=== PATIENT | male | born 1960 | race Caucasian/White ===

== ENCOUNTER 2017-08-14 13:46 | Inpatient (IN) | payer MEDICAID ==
[2017-08-14] VITALS (9 sets, daily range): BP systolic 80–119
[~2017-08-14] VITALS: Ht 188 cm; Wt 88.5 kg
[2017-08-14] MEDS ORDERED: LIDOCAINE 1%, 20 ML MDV 20 ML ONE (14:09)
[2017-08-14 14:42] LABS: MEAN CORPUSCULAR HEMOGLOBIN 28 pg (27-31); MEAN CORPUSCULAR HGB CONC 32 % (32-36); MEAN CORPUSCULAR VOLUME 88 fL (79.0-98.0); PLATELET COUNT (AUTO) 336 K/uL (130-430); RED CELL DISTRIBUTION WIDTH 20.7 % (9.0-15.0); WHITE BLOOD COUNT (AUTO) 22.9 K/uL (4.8-10.8)
[2017-08-14 14:43] LABS: RED BLOOD CELL COUNT(AUTO) 1.82 MIL/uL (4.2-6.2)
[2017-08-14 14:44] LABS: CALCIUM 8.8 mg/dL (8.4-11.0); CREATININE 1.6 mg/dL (0.55-1.30); HEMOGLOBIN 5.2 g/dL (14.0-18.0); POTASSIUM 4.2 mmol/L (3.5-5.1)
[2017-08-14 14:50] LABS: ALBUMIN 1.9 g/dL (3.4-4.8)
[2017-08-14 15:01] LABS: INR 2.1 (0.80-1.20); PROTHROMBIN TIME 21.6 SECS (9.5-12.5)
[2017-08-14] MEDS ORDERED: SPIR50TA26 PO (15:11)
[2017-08-14] MEDS ORDERED: FERR-57 PO (15:11)
[2017-08-14] MEDS ORDERED: FURO-149 PO (15:11)
[2017-08-14] MEDS ORDERED: DOXA2TAB PO (15:11)
[2017-08-14] MEDS ORDERED: LACT10SO66 PO (15:11)
[2017-08-14] MEDS ORDERED: ASCO500T20 PO (15:11)
[2017-08-14] MEDS ORDERED: MULT PO (15:11)
[2017-08-14] MEDS ORDERED: AMIN887L20 PO (15:11)
[2017-08-14] MEDS: NACL 0.9% 1,000 ML IV SCH ×2 (15:13→20:17)
[2017-08-14 15:14] LABS: BAND % (MANUAL) 2 % (0-6); BASOPHILS % (MANUAL) 0 % (0-2); EOSINOPHILS % (MANUAL) 0 % (0-7); LYMPHOCYTES % (MANUAL) 3 % (20-46); MONOCYTES % (MANUAL) 8 % (0-11)
[2017-08-14] MEDS ORDERED: LACTULOSE 20 GM/30 ML UDC PO ONE (15:15)
[2017-08-14] MEDS ORDERED: VANCOMYCIN HCL 1,000 MG in NS 250 ML IV ONE (15:15)
[2017-08-14] MEDS ORDERED: ACETAMINOPHEN 325 MG TABLET PO PRN (15:15)
[2017-08-14] MEDS ORDERED: ONDANSETRON HCL 4 MG/2 ML VIAL IVP PRN (15:15)
[2017-08-14] MEDS ORDERED: NACL 0.9% 1,000 ML IV ONE ×3 (15:15→17:00)
[2017-08-14] MEDS ORDERED: PIPERACILLIN/TAZO 3.375 GM in NS 50 ML IV ONE ×2 (15:15→15:30)
[2017-08-14] MEDS ORDERED: PIPERACILLIN/TAZOBACTAM 3.375 GM/VIAL (ZOSYN) IV ONE ×2 (15:23→20:52)
[2017-08-14 16:05] LABS: FREE T4 (FREE THYROXINE) 0.9 ng/dL (0.6-1.6); PHOSPHORUS 5.7 mg/dL (2.7-4.5); THYROID STIMULATING HORMONE 1.17 uIu/mL (0.34-4.82)
[2017-08-14 16:34] LABS: BILIRUBIN,URINE NEGATIVE (NEGATIVE); BLOOD, URINE 3+ (NEGATIVE); CLARITY/URINE HAZY (CLEAR); COLOR,URINE YELLOW (YELLOW); GLUCOSE,URINE NEGATIVE (NEGATIVE); KETONES,URINE TRACE (NEGATIVE); LEUKOCYTE ESTERASE ,URINE NEGATIVE (NEGATIVE); NITRITE, URINE NEGATIVE (NEGATIVE); PROTEIN URINE TRACE (NEGATIVE); UROBILINOGEN,URINE 0.2 (0.2-1.0)
[2017-08-14] MEDS ORDERED: VANCOMYCIN HCL 1000 MG/VIAL IV ONE (16:36)
[2017-08-14 16:43] LABS: APPEARANCE,SPUN,BODY FLUID CLEAR (CLEAR); BF APPEARANCE UNSPUN CLEAR (CLEAR); BODY FLUID SOURCE/ TYPE A; SOURCE/TYPE ,BODY FLUID ASCITES
[2017-08-14 16:44] LABS: BODY FLUID COLOR YELLOW (LT YELLOW); MONOCYTES,BODY FLUID 60 %; NEUTROPHIL, BODY FLUID 40 %; RBC, BODY FLUID 436 /uL; WBC, BODY FLUID 58 /uL
[2017-08-14 17:12] LABS: RBC,URINE >100 /HPF (0-3)
[2017-08-14 17:13] LABS: BACTERIA,URINE FEW /HPF (None Seen)
[2017-08-14] MEDS ORDERED: NOREPINEPHRINE BITARTRATE 4 MG in D5W 246 ML IV PRN (17:30)
[2017-08-14] MEDS ORDERED: PANTOPRAZOLE SODIUM 40 MG in NS 50 ML IV SCH ×2 (17:45→18:45)
[2017-08-14] MEDS ORDERED: PANTOPRAZOLE SODIUM 40 MG/VIAL (PROTONIX) IVP ONE (17:45)
[2017-08-14] MEDS ORDERED: PHYTONADIONE 10 MG in NS 50 ML IV ONE (18:30)
[2017-08-14] MEDS ORDERED: PHYTONADIONE 10 MG/ML AMP ONE ×2 (18:47→20:14)
[2017-08-14 18:53] LABS: INR 2.2 (0.80-1.20)
[2017-08-14] MEDS ORDERED: NOREPINEPHRINE 4 MG/4 ML VIAL IV ONE (19:17)
[2017-08-14] MEDS: ALBUTEROL SULFATE 0.083% 2.5 MG/3 ML VIAL.NEB INH SCH (20:00)
[2017-08-14] MEDS: IPRATROPIUM BROM 0.5 MG/2.5 ML VIAL.NEB (ATROVENT) INH SCH (20:00)
[2017-08-14] MEDS: OCTREOTIDE ACETATE 500 MCG in NS 247.5 ML IV SCH (20:58)
[2017-08-14] MEDS ORDERED: SACCHAROMYCES BOULARDII 250 MG CAPSULE (FLORASTOR) PO SCH (21:00)
[2017-08-14] MEDS: DOCUSATE SODIUM 100 MG CAPSULE PO SCH (21:00)
[2017-08-14] MEDS: LACTOBACILLUS RHAMNOSUS GG 1 CAP CAPSULE PO SCH (21:18)
[2017-08-14] MEDS ORDERED: FLU VACC QS 2017-18(36MOS+)/PF 0.5 ML/SYR SYRINGE I.M. PRN (22:30)
[2017-08-15] VITALS (24 sets, daily range): BP systolic 83–141
[2017-08-15] MEDS: IPRATROPIUM BROM 0.5 MG/2.5 ML VIAL.NEB (ATROVENT) INH SCH ×4 (00:16→19:43)
[2017-08-15] MEDS: ALBUTEROL SULFATE 0.083% 2.5 MG/3 ML VIAL.NEB INH SCH ×4 (00:16→19:43)
[2017-08-15 01:08] LABS: BASOPHILS # (AUTO) 1.5 K/uL (0.0-0.2); EOSINOPHILS # (AUTO) 0.1 K/uL (0.0-0.4); EOSINOPHILS % (AUTO) 0.3 % (0.0-4.0); HEMOGLOBIN 7.8 g/dL (14.0-18.0); LYMPHOCYTES # (AUTO) 1.7 K/uL (1.0-5.5); LYMPHOCYTES % (AUTO) 6.1 % (20.5-51.5); MEAN CORPUSCULAR HEMOGLOBIN 29 pg (27-31); MEAN CORPUSCULAR HGB CONC 34 % (32-36); MEAN CORPUSCULAR VOLUME 86 fL (79.0-98.0); MONOCYTES % (AUTO) 10.9 % (1.7-9.3); NEUTROPHILS # (AUTO) 21.6 K/uL (1.8-7.7); NEUTROPHILS % (AUTO) 77.2 % (40.0-70.0); PLATELET COUNT (AUTO) 303 K/uL (130-430); RED CELL DISTRIBUTION WIDTH 17.8 % (9.0-15.0)
[2017-08-15 01:23] LABS: BASOPHILS % (AUTO) 4.1 % (0.0-2.0)
[2017-08-15 01:24] LABS: RED BLOOD CELL COUNT(AUTO) 2.66 MIL/uL (4.2-6.2); WHITE BLOOD COUNT (AUTO) 27.9 K/uL (4.8-10.8)
[2017-08-15] MEDS ORDERED: NOREPINEPHRINE 4 MG/4 ML VIAL IV ONE ×2 (02:59→07:27)
[2017-08-15] MEDS ORDERED: PANTOPRAZOLE SODIUM 80 MG in NS 100 ML IV ONE (08:00)
[2017-08-15] MEDS: NEPHROVITE, (FOLIC ACID/VITAMIN B COMP W-C 1 TAB) PO SCH (08:45)
[2017-08-15] MEDS: RIFAXIMIN 550 MG TABLET PO SCH ×2 (08:45→20:49)
[2017-08-15] MEDS: DOCUSATE SODIUM 100 MG CAPSULE PO SCH (08:45)
[2017-08-15] MEDS: LACTULOSE 20 GM/30 ML UDC PO SCH ×3 (08:45→20:50)
[2017-08-15] MEDS: PANTOPRAZOLE SODIUM 40 MG in NS 50 ML IV SCH ×3 (08:45→18:32)
[2017-08-15] MEDS: LACTOBACILLUS RHAMNOSUS GG 1 CAP CAPSULE PO SCH ×2 (08:45→20:49)
[2017-08-15] MEDS: VANCOMYCIN HCL 1,000 MG in NS 250 ML IV SCH ×2 (08:46→20:51)
[2017-08-15] MEDS: MIDODRINE HCL 5 MG TABLET (PROAMATINE) PO SCH ×4 (08:52→21:11)
[2017-08-15] MEDS ORDERED: VANCOMYCIN HCL 1,250 MG in NS 250 ML IV SCH (09:00)
[2017-08-15] MEDS: ALBUMIN HUMAN 25% 50 ML IV SCH ×3 (09:13→20:34)
[2017-08-15 09:31] LABS: INR 1.8 (0.80-1.20); PROTHROMBIN TIME 18.2 SECS (9.5-12.5)
[2017-08-15 09:42] LABS: ALBUMIN 1.7 g/dL (3.4-4.8); CALCIUM 8.1 mg/dL (8.4-11.0); CREATININE 1.15 mg/dL (0.55-1.30); POTASSIUM 3.8 mmol/L (3.5-5.1); TOTAL BILIRUBIN 4.9 mg/dL (0.0-1.0)
[2017-08-15] MEDS: NACL 0.9% 1,000 ML IV SCH (10:01)
[2017-08-15 10:07] LABS: T4 (THYROXINE) 6.2 ug/dL (4.5-12.0)
[2017-08-15] MEDS: HYDROCORTISONE SOD SUCC 100 MG/2 ML VIAL IVP SCH ×3 (10:59→22:11)
[2017-08-15] MEDS ORDERED: POTASSIUM CHLORIDE 20 MEQ TAB.PRT.SR PO PRN (11:15)
[2017-08-15] MEDS ORDERED: ZOLPIDEM TARTRATE 5 MG TABLET PO PRN (11:15)
[2017-08-15] MEDS ORDERED: SIMETHICONE 80 MG TAB.CHEW PO PRN (11:15)
[2017-08-15] MEDS ORDERED: BISACODYL 10 MG/SUPPOSITORY RC PRN (11:15)
[2017-08-15] MEDS: PIPERACILLIN/TAZO 2.25G/DEX-IS 50 ML IV SCH ×2 (11:30→18:33)
[2017-08-15] MEDS: NOREPINEPHRINE BITARTRATE 8 MG in D5W 242 ML IV PRN (12:23)
[2017-08-15] MEDS ORDERED: METOCLOPRAMIDE HCL 10 MG/2 ML VIAL IVP ONE (14:30)
[2017-08-15 14:31] LABS: BASOPHILS % (AUTO) 0.1 % (0.0-2.0); EOSINOPHILS # (AUTO) 0.1 K/uL (0.0-0.4); EOSINOPHILS % (AUTO) 0.4 % (0.0-4.0); LYMPHOCYTES # (AUTO) 0.8 K/uL (1.0-5.5); LYMPHOCYTES % (AUTO) 4.3 % (20.5-51.5); MEAN CORPUSCULAR HEMOGLOBIN 28 pg (27-31); MEAN CORPUSCULAR HGB CONC 32 % (32-36); MEAN CORPUSCULAR VOLUME 87 fL (79.0-98.0); MONOCYTES # (AUTO) 1.9 K/uL (0.0-1.0); MONOCYTES % (AUTO) 10.3 % (1.7-9.3); NEUTROPHILS # (AUTO) 16.1 K/uL (1.8-7.7); NEUTROPHILS % (AUTO) 84.9 % (40.0-70.0); PLATELET COUNT (AUTO) 196 K/uL (130-430); RED BLOOD CELL COUNT(AUTO) 2.44 MIL/uL (4.2-6.2); WHITE BLOOD COUNT (AUTO) 18.9 K/uL (4.8-10.8)
[2017-08-15 14:33] LABS: HEMATOCRIT 21.1 % (36-54)
[2017-08-15 14:39] LABS: HEMOGLOBIN 6.8 g/dL (14.0-18.0)
[2017-08-15] MEDS: ALBUTEROL SULFATE 0.083% 2.5 MG/3 ML VIAL.NEB INH PRN (15:42)
[2017-08-15] MEDS: IPRATROPIUM BROM 0.5 MG/2.5 ML VIAL.NEB (ATROVENT) INH PRN (15:42)
[2017-08-15] MEDS ORDERED: SIMETHICONE 40 MG/0.6 ML ML ONE (16:11)
[2017-08-15] MEDS: MEPERIDINE HCL/PF 100 MG/ML AMP ONE ×3 (17:05→17:11)
[2017-08-15] MEDS: MIDAZOLAM HCL 5 MG/5 ML VIAL ONE ×4 (17:05→17:13)
[2017-08-15] MEDS: OCTREOTIDE ACETATE 500 MCG in NS 247.5 ML IV SCH (17:41)
[2017-08-15 18:27] LABS: HEMATOCRIT 28.5 % (36-54); HEMOGLOBIN 9.3 g/dL (14.0-18.0)
[2017-08-15] MEDS: FUROSEMIDE 40 MG TABLET PO SCH (20:49)
[2017-08-15] MEDS: FERROUS SULFATE 325 MG TABLET.DR PO SCH (20:49)
[2017-08-15 21:23] LABS: APPEARANCE,SPUN,BODY FLUID CLEAR (CLEAR); BF APPEARANCE UNSPUN CLEAR (CLEAR); BODY FLUID COLOR YELLOW (LT YELLOW); BODY FLUID SOURCE/ TYPE ASCITES; BODY FLUID TOTAL VOLUME 6000 mL; RBC, BODY FLUID 37 /uL; SOURCE/TYPE ,BODY FLUID PARACENTESIS; WBC, BODY FLUID 69 /uL
[2017-08-15 21:24] LABS: MONOCYTES,BODY FLUID 80 %; NEUTROPHIL, BODY FLUID 20 %
[2017-08-15 22:33] LABS: BODY FLUID GLUCOSE 224 mg/dL
[2017-08-15 22:34] LABS: BODY FLUID TOTAL PROTEIN < 2.0 g/dL
[2017-08-16] VITALS (23 sets, daily range): BP systolic 85–128
[2017-08-16] MEDS: PANTOPRAZOLE SODIUM 40 MG in NS 50 ML IV SCH ×5 (00:03→20:32)
[2017-08-16] MEDS: PIPERACILLIN/TAZO 2.25G/DEX-IS 50 ML IV SCH ×4 (00:04→18:16)
[2017-08-16] MEDS: ALBUTEROL SULFATE 0.083% 2.5 MG/3 ML VIAL.NEB INH SCH ×4 (00:53→19:14)
[2017-08-16] MEDS: IPRATROPIUM BROM 0.5 MG/2.5 ML VIAL.NEB (ATROVENT) INH SCH ×4 (00:53→19:14)
[2017-08-16 01:03] LABS: HEMATOCRIT 27.3 % (36-54); HEMOGLOBIN 8.9 g/dL (14.0-18.0)
[2017-08-16] MEDS: ALBUMIN HUMAN 25% 50 ML IV SCH ×2 (04:08→13:23)
[2017-08-16 06:16] LABS: BASOPHILS % (AUTO) 0.1 % (0.0-2.0); EOSINOPHILS % (AUTO) 0.1 % (0.0-4.0); HEMATOCRIT 27.2 % (36-54); HEMOGLOBIN 9.1 g/dL (14.0-18.0); LYMPHOCYTES % (AUTO) 4.9 % (20.5-51.5); MEAN CORPUSCULAR HEMOGLOBIN 30 pg (27-31); MEAN CORPUSCULAR HGB CONC 34 % (32-36); MEAN CORPUSCULAR VOLUME 88 fL (79.0-98.0); MONOCYTES # (AUTO) 2.3 K/uL (0.0-1.0); MONOCYTES % (AUTO) 11.7 % (1.7-9.3); NEUTROPHILS # (AUTO) 16.4 K/uL (1.8-7.7); NEUTROPHILS % (AUTO) 83.2 % (40.0-70.0); PLATELET COUNT (AUTO) 93 K/uL (130-430); RED BLOOD CELL COUNT(AUTO) 3.08 MIL/uL (4.2-6.2); RED CELL DISTRIBUTION WIDTH 15.7 % (9.0-15.0)
[2017-08-16] MEDS: HYDROCORTISONE SOD SUCC 100 MG/2 ML VIAL IVP SCH ×3 (06:29→21:35)
[2017-08-16 06:39] LABS: WHITE BLOOD COUNT (AUTO) 19.7 K/uL (4.8-10.8)
[2017-08-16 06:41] LABS: ALBUMIN 2.2 g/dL (3.4-4.8); CALCIUM 8.2 mg/dL (8.4-11.0); CREATININE 0.94 mg/dL (0.55-1.30); POTASSIUM 3.5 mmol/L (3.5-5.1)
[2017-08-16 06:44] LABS: INR 1.5 (0.80-1.20); PROTHROMBIN TIME 15.1 SECS (9.5-12.5)
[2017-08-16] MEDS: NOREPINEPHRINE BITARTRATE 8 MG in D5W 242 ML IV PRN (07:30)
[2017-08-16] MEDS ORDERED: IOHEXOL 100 ML IV ONE (10:21)
[2017-08-16] MEDS: ASCORBIC ACID 500 MG TABLET PO SCH (10:36)
[2017-08-16] MEDS: NEPHROVITE, (FOLIC ACID/VITAMIN B COMP W-C 1 TAB) PO SCH (10:36)
[2017-08-16] MEDS: LACTOBACILLUS RHAMNOSUS GG 1 CAP CAPSULE PO SCH ×2 (10:36→21:00)
[2017-08-16] MEDS: RIFAXIMIN 550 MG TABLET PO SCH ×2 (10:36→21:34)
[2017-08-16] MEDS: MULTIVITAMINS TAB 1 TABLET PO SCH (10:36)
[2017-08-16] MEDS: FUROSEMIDE 40 MG TABLET PO SCH ×2 (10:37→21:34)
[2017-08-16] MEDS: LACTULOSE 20 GM/30 ML UDC PO SCH ×2 (10:37→21:00)
[2017-08-16] MEDS: FERROUS SULFATE 325 MG TABLET.DR PO SCH ×2 (10:37→21:00)
[2017-08-16] MEDS: VANCOMYCIN HCL 1,000 MG in NS 250 ML IV SCH ×2 (10:41→21:35)
[2017-08-16] MEDS: SPIRONOLACTONE 50 MG TABLET (ALDACTONE) PO SCH (10:42)
[2017-08-16] MEDS: MIDODRINE HCL 5 MG TABLET (PROAMATINE) PO SCH ×3 (10:42→21:34)
[2017-08-16] MEDS: OCTREOTIDE ACETATE 500 MCG in NS 247.5 ML IV SCH (13:24)
[2017-08-16 13:33] LABS: HEMATOCRIT 26.2 % (36-54); HEMOGLOBIN 8.6 g/dL (14.0-18.0)
[2017-08-16] MEDS: ALBUTEROL SULFATE 0.083% 2.5 MG/3 ML VIAL.NEB INH PRN (15:27)
[2017-08-16] MEDS: IPRATROPIUM BROM 0.5 MG/2.5 ML VIAL.NEB (ATROVENT) INH PRN (15:27)
[2017-08-16] MEDS: NACL 0.9% 1,000 ML IV SCH (18:11)
[2017-08-16 18:14] LABS: HEMATOCRIT 26.5 % (36-54); HEMOGLOBIN 8.9 g/dL (14.0-18.0)
[2017-08-17] VITALS (25 sets, daily range): BP systolic 94–132
[2017-08-17] MEDS: NACL 0.9% 1,000 ML IV SCH (00:26)
[2017-08-17] MEDS: ALBUTEROL SULFATE 0.083% 2.5 MG/3 ML VIAL.NEB INH SCH ×4 (00:33→19:00)
[2017-08-17] MEDS: IPRATROPIUM BROM 0.5 MG/2.5 ML VIAL.NEB (ATROVENT) INH SCH ×4 (00:33→19:00)
[2017-08-17] MEDS: PANTOPRAZOLE SODIUM 40 MG in NS 50 ML IV SCH ×5 (00:43→20:07)
[2017-08-17] MEDS: PIPERACILLIN/TAZO 2.25G/DEX-IS 50 ML IV SCH ×3 (00:43→12:00)
[2017-08-17 01:14] LABS: HEMATOCRIT 27.4 % (36-54)
[2017-08-17] MEDS: HYDROCORTISONE SOD SUCC 100 MG/2 ML VIAL IVP SCH ×3 (05:12→22:02)
[2017-08-17 06:24] LABS: BASOPHILS # (AUTO) 0.1 K/uL (0.0-0.2); BASOPHILS % (AUTO) 0.5 % (0.0-2.0); EOSINOPHILS % (AUTO) 0.1 % (0.0-4.0); HEMATOCRIT 26.2 % (36-54); HEMOGLOBIN 8.8 g/dL (14.0-18.0); LYMPHOCYTES # (AUTO) 0.6 K/uL (1.0-5.5); LYMPHOCYTES % (AUTO) 3.6 % (20.5-51.5); MEAN CORPUSCULAR HEMOGLOBIN 30 pg (27-31); MEAN CORPUSCULAR HGB CONC 33 % (32-36); MEAN CORPUSCULAR VOLUME 89 fL (79.0-98.0); MONOCYTES # (AUTO) 1.5 K/uL (0.0-1.0); MONOCYTES % (AUTO) 9.1 % (1.7-9.3); NEUTROPHILS # (AUTO) 14.7 K/uL (1.8-7.7); NEUTROPHILS % (AUTO) 86.7 % (40.0-70.0); PLATELET COUNT (AUTO) 91 K/uL (130-430); RED BLOOD CELL COUNT(AUTO) 2.94 MIL/uL (4.2-6.2); RED CELL DISTRIBUTION WIDTH 16.4 % (9.0-15.0); WHITE BLOOD COUNT (AUTO) 16.9 K/uL (4.8-10.8)
[2017-08-17 06:37] LABS: INR 1.4 (0.80-1.20); PROTHROMBIN TIME 14.8 SECS (9.5-12.5)
[2017-08-17 06:45] LABS: ALANINE AMINOTRANSFERASE 574 U/L (12-78); ALBUMIN 2.1 g/dL (3.4-4.8); ANION GAP 7 (5-15); ASPARTATE AMINOTRANSFERASE 550 U/L (10-37); CALCIUM 8.4 mg/dL (8.4-11.0); CHLORIDE 106 mmol/L (98-107); CREATININE 0.87 mg/dL (0.55-1.30); GLUCOSE 173 mg/dL (70-99); POTASSIUM 3.6 mmol/L (3.5-5.1); SODIUM SERUM 136 mmol/L (136-145); TOTAL BILIRUBIN 6.3 mg/dL (0.0-1.0); UREA NITROGEN, BLOOD 23 mg/dL (8-21); VANCOMYCIN,RANDOM 17.1 ug/mL
[2017-08-17 07:06] LABS: GFR AFRICAN AMERICAN 116 mL/min (>90)
[2017-08-17 07:26] LABS: ACETAMINOPHEN < 1 ug/mL (1-30)
[2017-08-17 07:39] LABS: TOTAL IRON BIND. CAPACITY 182 ug/dL (250-450)
[2017-08-17] MEDS: OCTREOTIDE ACETATE 500 MCG in NS 247.5 ML IV SCH (07:41)
[2017-08-17 08:16] LABS: HEMOGLOBIN A1C 4.8 % (4.8-5.6)
[2017-08-17 08:16] LABS: HEPATITIS A AB, IgM Negative (Negative); HEPATITIS B CORE AB, IgM Negative (Negative); HEPATITIS B SURFACE AG Negative (Negative)
[2017-08-17] MEDS: FERROUS SULFATE 325 MG TABLET.DR PO SCH ×2 (10:02→20:08)
[2017-08-17] MEDS: MULTIVITAMINS TAB 1 TABLET PO SCH (10:02)
[2017-08-17] MEDS: ASCORBIC ACID 500 MG TABLET PO SCH (10:02)
[2017-08-17] MEDS: RIFAXIMIN 550 MG TABLET PO SCH ×2 (10:02→20:08)
[2017-08-17] MEDS: VANCOMYCIN HCL 1,000 MG in NS 250 ML IV SCH ×2 (10:02→20:07)
[2017-08-17] MEDS: LACTULOSE 20 GM/30 ML UDC PO SCH ×2 (10:02→20:07)
[2017-08-17] MEDS: LACTOBACILLUS RHAMNOSUS GG 1 CAP CAPSULE PO SCH ×2 (10:02→20:07)
[2017-08-17] MEDS: NEPHROVITE, (FOLIC ACID/VITAMIN B COMP W-C 1 TAB) PO SCH (10:03)
[2017-08-17] MEDS: FUROSEMIDE 40 MG TABLET PO SCH ×2 (10:03→20:07)
[2017-08-17] MEDS: MIDODRINE HCL 5 MG TABLET (PROAMATINE) PO SCH ×3 (10:04→20:08)
[2017-08-17] MEDS: SPIRONOLACTONE 50 MG TABLET (ALDACTONE) PO SCH (10:04)
[2017-08-17 12:10] LABS: HEMATOCRIT 27.4 % (36-54); HEMOGLOBIN 8.5 g/dL (14.0-18.0)
[2017-08-17] MEDS ORDERED: ALBUMIN HUMAN 25% 50 ML IV SCH (14:00)
[2017-08-17] MEDS ORDERED: ALBUMIN HUMAN 25% 200 ML IV ONE (16:00)
[2017-08-17 18:08] LABS: HEMOGLOBIN 8.7 g/dL (14.0-18.0)
[2017-08-18] VITALS (22 sets, daily range): BP systolic 91–148
[2017-08-18] MEDS: PIPERACILLIN/TAZO 2.25G/DEX-IS 50 ML IV SCH ×4 (00:12→18:04)
[2017-08-18] MEDS: IPRATROPIUM BROM 0.5 MG/2.5 ML VIAL.NEB (ATROVENT) INH SCH ×4 (00:24→19:45)
[2017-08-18] MEDS: ALBUTEROL SULFATE 0.083% 2.5 MG/3 ML VIAL.NEB INH SCH ×4 (00:24→19:45)
[2017-08-18] MEDS: NACL 0.9% 1,000 ML IV SCH ×2 (00:26→12:58)
[2017-08-18] MEDS: PANTOPRAZOLE SODIUM 40 MG in NS 50 ML IV SCH ×5 (01:02→21:30)
[2017-08-18] MEDS: OCTREOTIDE ACETATE 500 MCG in NS 247.5 ML IV SCH ×2 (03:35→21:26)
[2017-08-18] MEDS: HYDROCORTISONE SOD SUCC 100 MG/2 ML VIAL IVP SCH ×3 (05:22→21:26)
[2017-08-18 06:24] LABS: INR 1.5 (0.80-1.20)
[2017-08-18 06:26] LABS: BASOPHILS % (AUTO) 0.1 % (0.0-2.0); EOSINOPHILS % (AUTO) 0.2 % (0.0-4.0); HEMOGLOBIN 8.2 g/dL (14.0-18.0); LYMPHOCYTES # (AUTO) 0.4 K/uL (1.0-5.5); LYMPHOCYTES % (AUTO) 3.6 % (20.5-51.5); MEAN CORPUSCULAR HEMOGLOBIN 30 pg (27-31); MEAN CORPUSCULAR HGB CONC 33 % (32-36); MEAN CORPUSCULAR VOLUME 91 fL (79.0-98.0); MONOCYTES # (AUTO) 1.5 K/uL (0.0-1.0); MONOCYTES % (AUTO) 12.7 % (1.7-9.3); NEUTROPHILS # (AUTO) 9.9 K/uL (1.8-7.7); NEUTROPHILS % (AUTO) 83.4 % (40.0-70.0); PLATELET COUNT (AUTO) 82 K/uL (130-430); RED BLOOD CELL COUNT(AUTO) 2.74 MIL/uL (4.2-6.2); RED CELL DISTRIBUTION WIDTH 17.3 % (9.0-15.0); WHITE BLOOD COUNT (AUTO) 11.8 K/uL (4.8-10.8)
[2017-08-18 06:29] LABS: ALBUMIN 2.2 g/dL (3.4-4.8); CALCIUM 8.4 mg/dL (8.4-11.0); CREATININE 0.91 mg/dL (0.55-1.30); POTASSIUM 3.4 mmol/L (3.5-5.1); TOTAL BILIRUBIN 6.2 mg/dL (0.0-1.0)
[2017-08-18] MEDS: FERROUS SULFATE 325 MG TABLET.DR PO SCH ×2 (08:47→21:26)
[2017-08-18] MEDS: RIFAXIMIN 550 MG TABLET PO SCH ×2 (08:47→21:26)
[2017-08-18] MEDS: VANCOMYCIN HCL 1,000 MG in NS 250 ML IV SCH ×2 (08:47→21:31)
[2017-08-18] MEDS: FUROSEMIDE 40 MG TABLET PO SCH ×2 (08:48→21:00)
[2017-08-18] MEDS: ASCORBIC ACID 500 MG TABLET PO SCH (08:48)
[2017-08-18] MEDS: LACTOBACILLUS RHAMNOSUS GG 1 CAP CAPSULE PO SCH ×2 (08:48→21:27)
[2017-08-18] MEDS: SPIRONOLACTONE 50 MG TABLET (ALDACTONE) PO SCH (08:48)
[2017-08-18] MEDS: LACTULOSE 20 GM/30 ML UDC PO SCH ×2 (08:48→21:26)
[2017-08-18] MEDS: NEPHROVITE, (FOLIC ACID/VITAMIN B COMP W-C 1 TAB) PO SCH (08:48)
[2017-08-18] MEDS: MULTIVITAMINS TAB 1 TABLET PO SCH (08:48)
[2017-08-18] MEDS: MIDODRINE HCL 5 MG TABLET (PROAMATINE) PO SCH ×3 (08:49→21:30)
[2017-08-18] MEDS: MORPHINE 2 MG/ML INJ. SYRINGE IVP PRN ×2 (13:18→18:43)
[2017-08-18 15:30] LABS: FERRITIN 106 ng/mL (30-400)
[2017-08-19] VITALS (17 sets, daily range): BP systolic 96–126
[2017-08-19] MEDS: ALBUTEROL SULFATE 0.083% 2.5 MG/3 ML VIAL.NEB INH SCH ×4 (00:41→20:31)
[2017-08-19] MEDS: IPRATROPIUM BROM 0.5 MG/2.5 ML VIAL.NEB (ATROVENT) INH SCH ×4 (00:41→20:31)
[2017-08-19] MEDS: PIPERACILLIN/TAZO 2.25G/DEX-IS 50 ML IV SCH ×4 (01:44→18:30)
[2017-08-19] MEDS: PANTOPRAZOLE SODIUM 40 MG in NS 50 ML IV SCH ×2 (01:44→06:53)
[2017-08-19 05:06] LABS: ALPHA-1-ANTITRYPSIN, S 156 mg/dL (90-200)
[2017-08-19 06:25] LABS: EOSINOPHILS % (AUTO) 0.1 % (0.0-4.0); HEMATOCRIT 25.7 % (36-54); LYMPHOCYTES # (AUTO) 0.4 K/uL (1.0-5.5); LYMPHOCYTES % (AUTO) 3.6 % (20.5-51.5); MEAN CORPUSCULAR HEMOGLOBIN 29 pg (27-31); MEAN CORPUSCULAR HGB CONC 31 % (32-36); MEAN CORPUSCULAR VOLUME 92 fL (79.0-98.0); MONOCYTES # (AUTO) 1.2 K/uL (0.0-1.0); MONOCYTES % (AUTO) 11.9 % (1.7-9.3); NEUTROPHILS # (AUTO) 8.6 K/uL (1.8-7.7); NEUTROPHILS % (AUTO) 84.4 % (40.0-70.0); PLATELET COUNT (AUTO) 89 K/uL (130-430); RED BLOOD CELL COUNT(AUTO) 2.78 MIL/uL (4.2-6.2)
[2017-08-19] MEDS: HYDROCORTISONE SOD SUCC 100 MG/2 ML VIAL IVP SCH ×2 (06:36→21:25)
[2017-08-19 06:38] LABS: ALBUMIN 1.9 g/dL (3.4-4.8); CALCIUM 8.5 mg/dL (8.4-11.0); CREATININE 0.79 mg/dL (0.55-1.30); POTASSIUM 3.7 mmol/L (3.5-5.1); TOTAL BILIRUBIN 5.5 mg/dL (0.0-1.0)
[2017-08-19 06:47] LABS: WHITE BLOOD COUNT (AUTO) 10.2 K/uL (4.8-10.8)
[2017-08-19] MEDS: LACTULOSE 20 GM/30 ML UDC PO SCH ×2 (09:00→20:45)
[2017-08-19] MEDS: LACTOBACILLUS RHAMNOSUS GG 1 CAP CAPSULE PO SCH ×2 (09:00→20:45)
[2017-08-19] MEDS: NEPHROVITE, (FOLIC ACID/VITAMIN B COMP W-C 1 TAB) PO SCH (09:00)
[2017-08-19] MEDS: FUROSEMIDE 40 MG TABLET PO SCH ×2 (09:00→20:46)
[2017-08-19] MEDS: RIFAXIMIN 550 MG TABLET PO SCH ×2 (09:00→20:46)
[2017-08-19] MEDS: SPIRONOLACTONE 50 MG TABLET (ALDACTONE) PO SCH (09:01)
[2017-08-19] MEDS: FERROUS SULFATE 325 MG TABLET.DR PO SCH ×2 (09:01→20:45)
[2017-08-19] MEDS: MULTIVITAMINS TAB 1 TABLET PO SCH (09:01)
[2017-08-19] MEDS: ASCORBIC ACID 500 MG TABLET PO SCH (09:01)
[2017-08-19] MEDS: MIDODRINE HCL 5 MG TABLET (PROAMATINE) PO SCH ×3 (09:09→20:46)
[2017-08-19] MEDS: VANCOMYCIN HCL 1,000 MG in NS 250 ML IV SCH ×2 (09:11→21:26)
[2017-08-19 11:32] LABS: AFP, TUMOR MARKER 74.5 ng/mL (0.0-8.3); CARBOHYDRATE AG 19-9 105 U/mL (0-35); CEA 9.7 ng/mL (0.0-4.7)
[2017-08-19 12:19] LABS: ANTI-SMOOTH MUSCLE AB 18 Units (0-19)
[2017-08-19 21:17] LABS: ANTI NUCLEAR AB WITH REFLEX Negative (Negative)
[2017-08-19] MEDS: PANTOPRAZOLE SODIUM 40 MG/VIAL (PROTONIX) IVP SCH (21:26)
[2017-08-20] VITALS (7 sets, daily range): BP systolic 101–122
[2017-08-20] MEDS: PIPERACILLIN/TAZO 2.25G/DEX-IS 50 ML IV SCH ×5 (00:30→23:13)
[2017-08-20 00:44] LABS: HEMATOCRIT 26.9 % (36-54); HEMOGLOBIN 8.6 g/dL (14.0-18.0)
[2017-08-20 06:36] LABS: BASOPHILS # (AUTO) 0.1 K/uL (0.0-0.2); EOSINOPHILS # (AUTO) 0.1 K/uL (0.0-0.4); EOSINOPHILS % (AUTO) 0.9 % (0.0-4.0); HEMATOCRIT 25.5 % (36-54); HEMOGLOBIN 8.3 g/dL (14.0-18.0); LYMPHOCYTES # (AUTO) 0.3 K/uL (1.0-5.5); LYMPHOCYTES % (AUTO) 4.1 % (20.5-51.5); MEAN CORPUSCULAR HEMOGLOBIN 30 pg (27-31); MEAN CORPUSCULAR HGB CONC 33 % (32-36); MEAN CORPUSCULAR VOLUME 92 fL (79.0-98.0); MONOCYTES # (AUTO) 0.8 K/uL (0.0-1.0); MONOCYTES % (AUTO) 9.9 % (1.7-9.3); NEUTROPHILS % (AUTO) 84.1 % (40.0-70.0); PLATELET COUNT (AUTO) 91 K/uL (130-430); RED BLOOD CELL COUNT(AUTO) 2.78 MIL/uL (4.2-6.2); RED CELL DISTRIBUTION WIDTH 19.3 % (9.0-15.0); WHITE BLOOD COUNT (AUTO) 8.3 K/uL (4.8-10.8)
[2017-08-20 06:51] LABS: ALBUMIN 1.8 g/dL (3.4-4.8); CALCIUM 8.7 mg/dL (8.4-11.0); CREATININE 0.81 mg/dL (0.55-1.30); POTASSIUM 3.8 mmol/L (3.5-5.1); TOTAL BILIRUBIN 6.2 mg/dL (0.0-1.0)
[2017-08-20] MEDS: ALBUTEROL SULFATE 0.083% 2.5 MG/3 ML VIAL.NEB INH SCH ×3 (07:00→20:48)
[2017-08-20] MEDS: IPRATROPIUM BROM 0.5 MG/2.5 ML VIAL.NEB (ATROVENT) INH SCH ×3 (07:00→20:48)
[2017-08-20] MEDS: FUROSEMIDE 40 MG TABLET PO SCH ×2 (09:00→20:49)
[2017-08-20] MEDS: SPIRONOLACTONE 50 MG TABLET (ALDACTONE) PO SCH (09:00)
[2017-08-20] MEDS: LACTULOSE 20 GM/30 ML UDC PO SCH ×2 (09:00→20:48)
[2017-08-20] MEDS: VANCOMYCIN HCL 1,000 MG in NS 250 ML IV SCH ×2 (09:20→20:32)
[2017-08-20] MEDS: NEPHROVITE, (FOLIC ACID/VITAMIN B COMP W-C 1 TAB) PO SCH (09:23)
[2017-08-20] MEDS: RIFAXIMIN 550 MG TABLET PO SCH ×2 (09:23→20:48)
[2017-08-20] MEDS: LACTOBACILLUS RHAMNOSUS GG 1 CAP CAPSULE PO SCH ×2 (09:23→20:49)
[2017-08-20] MEDS: MULTIVITAMINS TAB 1 TABLET PO SCH (09:23)
[2017-08-20] MEDS: MIDODRINE HCL 5 MG TABLET (PROAMATINE) PO SCH ×3 (09:23→20:49)
[2017-08-20] MEDS: ASCORBIC ACID 500 MG TABLET PO SCH (09:25)
[2017-08-20] MEDS: PANTOPRAZOLE SODIUM 40 MG/VIAL (PROTONIX) IVP SCH ×2 (09:27→20:31)
[2017-08-20] MEDS: HYDROCORTISONE SOD SUCC 100 MG/2 ML VIAL IVP SCH ×2 (09:28→20:33)
[2017-08-20] MEDS: FERROUS SULFATE 325 MG TABLET.DR PO SCH ×2 (09:28→20:49)
[2017-08-20] MEDS: MORPHINE 2 MG/ML INJ. SYRINGE IVP PRN ×2 (18:45→23:12)
[2017-08-21 00:05] VITALS: BP_SYST 117
[2017-08-21 00:48] LABS: HEMATOCRIT 27.8 % (36-54); HEMOGLOBIN 8.8 g/dL (14.0-18.0)
[2017-08-21] MEDS: ALBUTEROL SULFATE 0.083% 2.5 MG/3 ML VIAL.NEB INH SCH ×4 (03:35→20:31)
[2017-08-21] MEDS: IPRATROPIUM BROM 0.5 MG/2.5 ML VIAL.NEB (ATROVENT) INH SCH ×4 (03:36→20:31)
[2017-08-21 04:35] VITALS: BP_SYST 110
[2017-08-21] MEDS: PIPERACILLIN/TAZO 2.25G/DEX-IS 50 ML IV SCH (05:01)
[2017-08-21 07:20] LABS: BASOPHILS % (AUTO) 0.3 % (0.0-2.0); EOSINOPHILS # (AUTO) 0.2 K/uL (0.0-0.4); EOSINOPHILS % (AUTO) 1.4 % (0.0-4.0); LYMPHOCYTES # (AUTO) 0.5 K/uL (1.0-5.5); LYMPHOCYTES % (AUTO) 3.9 % (20.5-51.5); MEAN CORPUSCULAR HEMOGLOBIN 30 pg (27-31); MEAN CORPUSCULAR HGB CONC 33 % (32-36); MEAN CORPUSCULAR VOLUME 91 fL (79.0-98.0); MONOCYTES # (AUTO) 1.2 K/uL (0.0-1.0); MONOCYTES % (AUTO) 10.1 % (1.7-9.3); PLATELET COUNT (AUTO) 113 K/uL (130-430); RED BLOOD CELL COUNT(AUTO) 2.97 MIL/uL (4.2-6.2); RED CELL DISTRIBUTION WIDTH 19.2 % (9.0-15.0); WHITE BLOOD COUNT (AUTO) 11.9 K/uL (4.8-10.8)
[2017-08-21 07:46] LABS: ALBUMIN 1.9 g/dL (3.4-4.8); CALCIUM 8.7 mg/dL (8.4-11.0); CREATININE 0.77 mg/dL (0.55-1.30); POTASSIUM 3.8 mmol/L (3.5-5.1); TOTAL BILIRUBIN 5.6 mg/dL (0.0-1.0)
[2017-08-21 08:00] VITALS: BP_SYST 120
[2017-08-21] MEDS: LACTULOSE 20 GM/30 ML UDC PO SCH ×2 (08:24→21:42)
[2017-08-21] MEDS: PANTOPRAZOLE SODIUM 40 MG/VIAL (PROTONIX) IVP SCH ×2 (08:25→21:41)
[2017-08-21] MEDS: HYDROCORTISONE SOD SUCC 100 MG/2 ML VIAL IVP SCH ×2 (08:25→21:40)
[2017-08-21] MEDS: FERROUS SULFATE 325 MG TABLET.DR PO SCH ×2 (08:25→21:42)
[2017-08-21] MEDS: LACTOBACILLUS RHAMNOSUS GG 1 CAP CAPSULE PO SCH ×2 (08:25→21:41)
[2017-08-21] MEDS: RIFAXIMIN 550 MG TABLET PO SCH (08:25)
[2017-08-21] MEDS: SPIRONOLACTONE 50 MG TABLET (ALDACTONE) PO SCH (08:25)
[2017-08-21] MEDS: MULTIVITAMINS TAB 1 TABLET PO SCH (08:25)
[2017-08-21] MEDS: FUROSEMIDE 40 MG TABLET PO SCH ×2 (08:26→21:42)
[2017-08-21] MEDS: MIDODRINE HCL 5 MG TABLET (PROAMATINE) PO SCH ×3 (08:26→21:42)
[2017-08-21] MEDS: ASCORBIC ACID 500 MG TABLET PO SCH (08:26)
[2017-08-21] MEDS: NEPHROVITE, (FOLIC ACID/VITAMIN B COMP W-C 1 TAB) PO SCH (08:27)
[2017-08-21] MEDS: VANCOMYCIN HCL 1,000 MG in NS 250 ML IV SCH (08:38)
[2017-08-21 11:24] LABS: NEUTROPHILS % (AUTO) 84.3 % (40.0-70.0)
[2017-08-21 11:32] VITALS: BP_SYST 107
[2017-08-21] MEDS: MORPHINE 2 MG/ML INJ. SYRINGE IVP PRN ×2 (14:17→17:57)
[2017-08-21 16:12] VITALS: BP_SYST 117
[2017-08-22 01:05] VITALS: BP_SYST 118
[2017-08-22] MEDS: ALBUTEROL SULFATE 0.083% 2.5 MG/3 ML VIAL.NEB INH SCH ×4 (01:24→19:47)
[2017-08-22] MEDS: IPRATROPIUM BROM 0.5 MG/2.5 ML VIAL.NEB (ATROVENT) INH SCH ×4 (01:25→19:47)
[2017-08-22 04:00] VITALS: BP_SYST 128
[2017-08-22 08:37] VITALS: BP_SYST 124
[2017-08-22] MEDS: LACTULOSE 20 GM/30 ML UDC PO SCH ×2 (08:39→20:59)
[2017-08-22] MEDS: PANTOPRAZOLE SODIUM 40 MG/VIAL (PROTONIX) IVP SCH (08:39)
[2017-08-22] MEDS: LACTOBACILLUS RHAMNOSUS GG 1 CAP CAPSULE PO SCH ×2 (08:40→20:59)
[2017-08-22] MEDS: FERROUS SULFATE 325 MG TABLET.DR PO SCH ×2 (08:41→21:01)
[2017-08-22] MEDS: MULTIVITAMINS TAB 1 TABLET PO SCH (08:41)
[2017-08-22] MEDS: ASCORBIC ACID 500 MG TABLET PO SCH (08:41)
[2017-08-22] MEDS: NEPHROVITE, (FOLIC ACID/VITAMIN B COMP W-C 1 TAB) PO SCH (08:41)
[2017-08-22] MEDS: HYDROCORTISONE SOD SUCC 100 MG/2 ML VIAL IVP SCH (09:02)
[2017-08-22] MEDS: MORPHINE 2 MG/ML INJ. SYRINGE IVP PRN ×5 (09:02→22:18)
[2017-08-22] MEDS: SPIRONOLACTONE 50 MG TABLET (ALDACTONE) PO SCH (09:03)
[2017-08-22] MEDS: MIDODRINE HCL 5 MG TABLET (PROAMATINE) PO SCH ×3 (09:03→20:59)
[2017-08-22] MEDS: FUROSEMIDE 40 MG TABLET PO SCH ×2 (09:04→20:59)
[2017-08-22 12:35] VITALS: BP_SYST 118
[2017-08-22] MEDS: LORazepam 2 MG/ML VIAL IVP PRN ×2 (15:03→20:50)
[2017-08-22 16:44] VITALS: BP_SYST 114
[2017-08-22 19:51] VITALS: BP_SYST 125
[2017-08-23] MEDS ORDERED: DIPHENHYDRAMINE HCL 25 MG CAPSULE PO PRN (00:45)
[2017-08-23] MEDS: ALBUTEROL SULFATE 0.083% 2.5 MG/3 ML VIAL.NEB INH SCH ×3 (00:58→13:50)
[2017-08-23] MEDS: IPRATROPIUM BROM 0.5 MG/2.5 ML VIAL.NEB (ATROVENT) INH SCH ×3 (00:59→13:49)
[2017-08-23 08:00] VITALS: BP_SYST 97
[2017-08-23] MEDS: MULTIVITAMINS TAB 1 TABLET PO SCH (08:44)
[2017-08-23] MEDS: FERROUS SULFATE 325 MG TABLET.DR PO SCH (08:44)
[2017-08-23] MEDS: SPIRONOLACTONE 50 MG TABLET (ALDACTONE) PO SCH (08:44)
[2017-08-23] MEDS: LACTOBACILLUS RHAMNOSUS GG 1 CAP CAPSULE PO SCH (08:44)
[2017-08-23] MEDS: NEPHROVITE, (FOLIC ACID/VITAMIN B COMP W-C 1 TAB) PO SCH (08:44)
[2017-08-23] MEDS: LACTULOSE 20 GM/30 ML UDC PO SCH (08:44)
[2017-08-23] MEDS: FUROSEMIDE 40 MG TABLET PO SCH (08:45)
[2017-08-23] MEDS: MIDODRINE HCL 5 MG TABLET (PROAMATINE) PO SCH ×2 (08:45→16:01)
[2017-08-23] MEDS: ASCORBIC ACID 500 MG TABLET PO SCH (08:45)
[2017-08-23] MEDS ORDERED: PANTOPRAZOLE SODIUM 40 MG TAB PO SCH (09:00)
[2017-08-23 12:48] VITALS: BP_SYST 119
[2017-08-23 13:11] VITALS: BP_SYST 114
[2017-08-23 16:15] VITALS: BP_SYST 154
== END 2017-08-23 16:45 | DRG 720 ==
LOC: SED 14:39 → STU 15:13 → SIC 16:46 → STU 08-19 18:43 → SMU 08-22 10:25
PROVIDERS: ADMIT Family Medicine; ATTEND Family Medicine
PROC: 0W9G3ZZ Drainage of Peritoneal Cavity, Percutaneous Approach (ICD-10-PCS; 2017-08-15)
PROC: 02HV33Z Insertion of Infusion Device into Superior Vena Cava, Percutaneous Approach (ICD-10-PCS; 2017-08-15)
PROC: B548ZZA Ultrasonography of Superior Vena Cava, Guidance (ICD-10-PCS; 2017-08-15)
PROC: 30233N1 Transfusion of Nonautologous Red Blood Cells into Peripheral Vein, Percutaneous Approach (ICD-10-PCS; 2017-08-15)
PROC: 06L38CZ Occlusion of Esophageal Vein with Extraluminal Device, Via Natural or Artificial Opening Endoscopic (ICD-10-PCS; principal; 2017-08-15 16:00)
DX: A41.9 Sepsis, unspecified organism (principal); N17.0 Acute kidney failure with tubular necrosis; R57.1 Hypovolemic shock; E87.2 Acidosis; E43 Unspecified severe protein-calorie malnutrition; J90 Pleural effusion, not elsewhere classified; R18.0 Malignant ascites; D68.9 Coagulation defect, unspecified; J18.9 Pneumonia, unspecified organism; R65.21 Severe sepsis with septic shock; C78.7 Secondary malignant neoplasm of liver and intrahepatic bile duct; D69.59 Other secondary thrombocytopenia; E87.1 Hypo-osmolality and hyponatremia; N39.0 Urinary tract infection, site not specified; D62 Acute posthemorrhagic anemia; B19.20 Unspecified viral hepatitis C without hepatic coma; E11.9 Type 2 diabetes mellitus without complications; E87.70 Fluid overload, unspecified; F10.188 Alcohol abuse with other alcohol-induced disorder; I10 Essential (primary) hypertension; I85.00 Esophageal varices without bleeding; K29.70 Gastritis, unspecified, without bleeding; K29.80 Duodenitis without bleeding; K70.31 Alcoholic cirrhosis of liver with ascites; K72.90 Hepatic failure, unspecified without coma; K76.6 Portal hypertension; K80.20 Calculus of gallbladder without cholecystitis without obstruction; Z87.891 Personal history of nicotine dependence; K74.60 Unspecified cirrhosis of liver; R26.9 Unspecified abnormalities of gait and mobility
CPT/HCPCS: 36415; 36600; 43244; 49083; 71010; 76700-TC; 78278-TC; 80053; 80061; 80074; 80202-TC; 81000-TC; 82042; 82103; 82105; 82140-TC; 82150-TC; 82272; 82378; 82728; 82803-TC; 82947-TC; 82977-TC; 83036; 83516; 83540-TC; 83550-TC; 83605; 83690-TC; 83735-TC; 83880; 84100-TC; 84157-TC; 84302-TC; 84436; 84439; 84443-TC; 84479; 84484; 85007; 85018-TC; 85025; 85027; 85610-TC; 85730-TC; 86038; 86301; 86886; 86900; 86901; 86920; 87040-TC; 87070-TC; 87081; 87086; 89051-TC; 89060-TC; 94640; 94760; 96361; 96365; 97110-GP; 97116-GP; 97530-GP; 99291; A9560; C1729; C1751; C9113; G0480; J1720; J2001; J2060; J2175; J2250; J2270; J2354; J2543; J2765; J3370; J3430; J7030; J7050; J7060; P9021; P9046; P9059; Q0163; Q2037; Q9967